=== PATIENT | male | born 1980 | race African-American/Black ===

== ENCOUNTER 2019-01-11 13:33 | Inpatient (IN) | payer OTHER ==
[2019-01-11 14:38] VITALS: BMI 26.1
--- NOTE | 2019-01-11 16:42 | HP ---
CIWA Score Nausea/Vomitin-No Nausea/No Vomiting Muscle Tremors: None Anxiety: 3 Agitation: 1-Slight > Activity Paroxysmal Sweats: No Perspiration Orientation: 0-Oriented Tacttile Disturbances: 0-None Auditory Disturbances: 0-None Visual Disturbances: 0-None Headache: 3-Moderate CIWA-Ar Total Score: 7 - Admission Criteria OASAS Guidelines: Admission for Medically Managed Detox: Requires at least one of the followin. CIWA greater than 12 2. Seizures within the past 24 hours 3. Delirium tremens within the past 24 hours 4. Hallucinations within the past 24 hours 5. Acute intervention needed for co occurring medical disorder 6. Acute intervention needed for co occurring psychiatric disorder 7. Severe withdrawal that cannot be handled at a lower level of care (continued vomiting, continued diarrhea, abnormal vital signs) requiring intravenous medication and/or fluids 8. Admission ROS S - HPI Allergies/Adverse Reactions: Allergies Allergy/AdvReac Type Severity Reaction Status Date / Time No Known Allergies Allergy Verified 01/11/19 14:25 History of Present Illness: pt here requesting detox from benzo use , reports MMTP in [facility] x 2 years , current daily dose 120 mg Occasional heroin use with MMTP . cocaine : 1 gr/day IVDU in [place] , needles from pharmacy , denies sharing , + re-using, denies abscess benzo : xanax use 2 /day x 2 years tobacco : " probably in a few days " PMHX : denies PSHx : denies PSych : denies meds : denies Search Terms: ayaz bragg, 1980 Search Date: 01/11/2019 04:51:48 PM The Drug Utilization Report below displays all of the controlled substance prescriptions, if any, that your patient has filled in the last twelve months. The information displayed on this report is compiled from pharmacy submissions to the Department, and accurately reflects the information as submitted by the pharmacies. This report was requested by: Maribell Washington | Reference #: [id number] There are no results for the search terms that you entered. Exam Limitations: Clinical Condition, Intoxication - Ebola screening Have you traveled outside of the country in the last 21 days: No Have you had contact with anyone from an Ebola affected area: No - Review of Systems Constitutional: See HPI EENT: reports: Other (denies vision loss , denies dysphagia) Respiratory: reports: No Symptoms reported Cardiac: reports: No Symptoms Reported GI: reports: Constipated : reports: No Symptoms Reported Musculoskeletal: reports: No Symptoms Reported Integumentary: reports: See HPI Neuro: reports: Headache Endocrine: reports: No Symptoms Reported Hematology: reports: No Symptoms Reported Psychiatric: reports: Orientated x3, Depressed Patient History - Smoking Cessation Smoking history: Current some day smoker Initiated information on smoking cessation: No - Substances abused Alcohol Substance route: Oral Frequency: Daily Amount used: 2 six beers ( 12 oz cans) Age of first use: 13 Date of last use: 01/10/19 Heroin Substance route: Injection Frequency: 3-6 times per week Amount used: 2 bags Age of first use: 15 Date of last use: 01/10/19 Alprazolam (Xanax) Substance route: Oral Frequency: Daily Amount used: 6mg Age of first use: 28 Date of last use: 01/10/19 Benzodiazepine (Klonopin) Substance route: Oral Frequency: 3-6 times per week Amount used: 4mg Age of first use: 35 Date of last use: 01/06/19 Cocaine Substance route: Smoking Frequency: Daily Amount used: 1 gram Age of first use: 14 Date of last use: 01/10/19 Family Disease History - Family Disease History Family History: Unable to Obtain Family Disease History: CA: Father (d. Lung CA ), Mother (d. lung CA) Admission Physical Exam [facility] - Vital Signs Vital Signs: Vital Signs - 24 hr 01/11/19 14:28 Temperature 98 F Pulse Rate 61 Respiratory 18 Rate Blood Pressure 136/80 - Physical General Appearance: Yes: Disheveled, Mild Distress, Anxious HEENTM: Yes: EOMI, Hearing grossly Normal, Normocephalic, Normal Voice Respiratory: Yes: Chest Non-Tender, Lungs Clear, Normal Breath Sounds Neck: Yes: No masses,lesions,Nodules, Trachea in good position Cardiology: Yes: Regular Rhythm, Regular Rate, S1, S2 Abdominal: Yes: Normal Bowel Sounds, Non Tender, Soft Back: Yes: Normal Inspection Musculoskeletal: Yes: full range of Motion Extremities: Yes: Normal Range of Motion, Non-Tender Neurological: Yes: Fully Oriented, Alert, Motor Strength 5/5 Integumentary: Yes: Warm, Track Woodard (dorsum of hands) - Diagnostic (1) Sedative, hypnotic or anxiolytic abuse Current Visit: Yes Status: Acute (2) Cocaine dependence Current Visit: Yes Status: Chronic Qualifiers: Substance use status: uncomplicated Qualified Code(s): F14.20 - Cocaine dependence, uncomplicated (3) Opioid dependence on agonist therapy Current Visit: Yes Status: Chronic Breathalyzer - Breathalyzer Breathalyzer: 0 Urine Drug Screen - Test Device Lot number: [id number] Expiration date: 08/31/20 - Control Is test valid?: Yes - Results Drug screen NEGATIVE: No Urine drug screen results: KAITLIN-Cocaine, MOP-Opiates, MTD-Methadone, BZO- Benzodiazepines Inpatient Rehab Admission - Rehab Decision to Admit Inpatient rehab admission?: No
[2019-01-11] MEDS ORDERED: MENTHOL/PHENOL 1 EACH UD MM PRN (16:59)
[2019-01-11] MEDS ORDERED: diazePAM 5 MG TABLET PO PRN (16:59)
[2019-01-11] MEDS ORDERED: MELATONIN 5 MG TABLETS PO PRN (16:59)
[2019-01-11] MEDS ORDERED: MAG HYDROX/AL HYDROX/SIMETH 30 ML UNIT-DOSE CUP PO PRN (16:59)
[2019-01-11] MEDS ORDERED: BISMUTH SUBSALICYLATE 524 MG/30 ML UD PO PRN (16:59)
[2019-01-11] MEDS ORDERED: IBUPROFEN 400 MG TABLET (FP) PO PRN (16:59)
[2019-01-11] MEDS ORDERED: MAGNESIUM HYDROX 2400MG/30ML ORAL SUSPENSION 30 ML CUP PO PRN (16:59)
[2019-01-11] MEDS ORDERED: MAGNESIUM CITRATE 300 ML BOTTLE PO PRN (16:59)
[2019-01-11] MEDS ORDERED: ACETAMINOPHEN 325 MG TABLET (FP) PO PRN ×2 (16:59)
[2019-01-11] MEDS ORDERED: ALBUTEROL SO4 0.083% IH SOL 2.5 MG/3 ML VIAL.NEB. NEB PRN (17:00)
[2019-01-11] MEDS: diazePAM 5 MG TABLET PO SCH (22:58)
[2019-01-11] MEDS: THIAMINE HCL 100 MG TABLET (FP) PO SCH (22:58)
[2019-01-12] MEDS: diazePAM 5 MG TABLET PO SCH ×3 (05:53→23:16)
--- NOTE | 2019-01-12 08:55 | PN ---
[facility] CIWA - CIWA Score Nausea/Vomitin Muscle Tremors: 2 Anxiety: 2 Agitation: 2 Paroxysmal Sweats: 1-Minimal Palms Moist Orientation: 0-Oriented Tacttile Disturbances: 2-Mild Itch/Numbness/Burn Auditory Disturbances: 0-None Visual Disturbances: 0-None Headache: 1-Very Mild CIWA-Ar Total Score: 12 [facility] Progress Note (SOAP) Subjective: Interrupted sleep, anxiety, muscle aches Objective: 01/12/19 08:54 Vital Signs 01/12/19 01/12/19 03:00 03:30 Temperature 97.9 F Pulse Rate 64 Respiratory 18 18 Rate Blood Pressure 129/65 Labs pending Assessment: 01/12/19 08:54 Withdrawal sx MMTP Plan: Continue detox Methadone 120mg daily ordered
[2019-01-12] MEDS: PRENATAL VITAMINS W/ FOLIC ACID TABLET (FP) PO SCH (10:33)
[2019-01-12] MEDS: METHADONE HCL 40 MG DISPERSABLE TABLET PO SCH (10:33)
[2019-01-12 11:00] LABS: ALBUMIN 3.1 g/dl (3.4-5.0); ALK PHOS 93 U/L (45-117); ANION GAP 4 MMOL/L (8-16); BILIRUBIN,TOTAL 0.3 mg/dL (0.2-1); BLOOD UREA NITROGEN 15 mg/dL (7-18); CALCIUM 8.5 mg/dL (8.5-10.1); CHLORIDE 107 mmol/L (98-107); CO2 28 mmol/L (21-32); GLUCOSE,RANDOM 135 mg/dL (74-106); POTASSIUM 3.6 mmol/L (3.5-5.1); SGOT/AST 31 U/L (15-37); SGPT/ALT 33 U/L (13-61); SODIUM 139 mmol/L (136-145); TOT PROT 6.4 g/dl (6.4-8.2)
[2019-01-12 11:06] LABS: HEMOGLOBIN 11.8 GM/dL (11.7-16.9); MCHC 31.8 g/dl (32.0-35.9); MEAN CELL VOLUME 81.7 fl (80-96); MEAN PLT VOLUME 8.6 fl (7.5-11.1); PLATELET COUNT 217 K/MM3 (134-434); RBC 4.53 M/mm3 (4.00-5.60); RDW 14.7 % (11.9-15.9); WHITE BLOOD COUNT 4.9 K/mm3 (4.0-10.0)
[2019-01-12] MEDS: THIAMINE HCL 100 MG TABLET (FP) PO SCH (23:16)
[2019-01-13] MEDS ORDERED: METHADONE HCL 10 MG TABLET PO ONE (09:51)
[2019-01-13] MEDS ORDERED: METHADONE HCL 40 MG DISPERSABLE TABLET PO ONE (10:15)
[2019-01-13] MEDS: PRENATAL VITAMINS W/ FOLIC ACID TABLET (FP) PO SCH (10:31)
[2019-01-13] MEDS: METHADONE HCL 40 MG DISPERSABLE TABLET PO SCH (10:33)
[2019-01-13] MEDS: diazePAM 5 MG TABLET PO SCH ×2 (10:33→22:18)
--- NOTE | 2019-01-13 10:39 | PN ---
S CIWA - CIWA Score Nausea/Vomitin-No Nausea/No Vomiting Muscle Tremors: 2 Anxiety: 2 Agitation: 0-Normal Activity Paroxysmal Sweats: 2 Orientation: 0-Oriented Tacttile Disturbances: 0-None Auditory Disturbances: 0-None Visual Disturbances: 0-None Headache: 0-None Present CIWA-Ar Total Score: 6 [facility] Progress Note (SOAP) Subjective: PATIENT C/O ANXIETY, INTERRUPTED SLEEP, MILD NIGHT SWEATS AND CHILLS. Objective: 01/13/19 10:37 Vital Signs Temperature 98.1 F 01/13/19 09:16 Pulse Rate 62 01/13/19 09:16 Respiratory Rate 16 01/13/19 09:16 Blood Pressure 109/52 L 01/13/19 09:16 O2 Sat by Pulse Oximetry (%) Laboratory Tests 01/12/19 01/12/19 01/12/19 07:30 07:30 07:30 WBC 4.9 RBC 4.53 Hgb 11.8 Hct 37.0 MCV 81.7 MCH 26.0 MCHC 31.8 L RDW 14.7 Plt Count 217 MPV 8.6 Sodium 139 Potassium 3.6 Chloride 107 Carbon Dioxide 28 Anion Gap 4 L BUN 15 Creatinine 1.0 Creat Clearance w eGFR 82.76 Random Glucose 135 H Calcium 8.5 Total Bilirubin 0.3 AST 31 ALT 33 Alkaline Phosphatase 93 Total Protein 6.4 Albumin 3.1 L RPR Titer Nonreactive PE: ALERT AND ORIENTED X 3 SKIN WARM AND DRY EXT MILD TREMORS MILDLY ANXIOUS, SLEEPY Assessment: 01/13/19 10:38 WITHDRAWAL SX Plan: CONTINUE DETOX ENCOURAGED ORAL FLUIDS CONTINUE TO MONITOR CLINICALLY
[2019-01-13] MEDS: THIAMINE HCL 100 MG TABLET (FP) PO SCH (22:19)
[2019-01-14] MEDS ORDERED: diazePAM 5 MG TABLET PO SCH (06:00)
[2019-01-14 09:40] VITALS: BP 133/61; PULSE 86; TEMP 98.1
[2019-01-14] MEDS: METHADONE HCL 40 MG DISPERSABLE TABLET PO SCH (09:59)
[2019-01-14] MEDS: PRENATAL VITAMINS W/ FOLIC ACID TABLET (FP) PO SCH (10:00)
--- NOTE | 2019-01-14 14:16 | DS ---
[facility] Detox Discharge Summary Admission Date: 01/11/19 Discharge Date: 01/14/19 - History Present History: Cocaine Dependence, Opioid Dependence, Sedative Dependence, MMTP Additional Comments: PATIENT GOING TO [facility] ([place], [place]) FOR AFTERCARE. PATIENT WAS DISCHARGED FROM DETOX UNIT IN STABLE MEDICAL CONDITION. Pertinent Past History: M.M.T.P. - Physical Exam Results Vital Signs: Vital Signs Temperature 98.1 F 01/14/19 09:40 Pulse Rate 86 01/14/19 09:40 Respiratory Rate 16 01/14/19 09:40 Blood Pressure 133/61 01/14/19 09:40 O2 Sat by Pulse Oximetry (%) Pertinent Admission Physical Exam Findings: WITHDRAWAL SYMPTOMS. Laboratory Tests 01/12/19 01/12/19 01/12/19 07:30 07:30 07:30 WBC 4.9 RBC 4.53 Hgb 11.8 Hct 37.0 MCV 81.7 MCH 26.0 MCHC 31.8 L RDW 14.7 Plt Count 217 MPV 8.6 Sodium 139 Potassium 3.6 Chloride 107 Carbon Dioxide 28 Anion Gap 4 L BUN 15 Creatinine 1.0 Creat Clearance w eGFR 82.76 Random Glucose 135 H Calcium 8.5 Total Bilirubin 0.3 AST 31 ALT 33 Alkaline Phosphatase 93 Total Protein 6.4 Albumin 3.1 L RPR Titer Nonreactive LABS NOTED. - Treatment Hospital Course: Detox Protocol Followed, Detoxed Safely, Responded well, Discharged Condition Good, Rehab Referral Accepted Patient has Accepted a Rehab Referral to: [facility] ([place], [place]). - Medication Discharge Medications: Ambulatory Orders NK [No Known Home Medication] 01/11/19 - Diagnosis (1) Sedative, hypnotic or anxiolytic abuse Status: Acute (2) Cocaine dependence Status: Chronic Qualifiers: Substance use status: uncomplicated Qualified Code(s): F14.20 - Cocaine dependence, uncomplicated (3) Opioid dependence on agonist therapy Status: Chronic - AMA Did Patient Leave Against Medical Advice: No
== END 2019-01-14 10:27 | disposition home or self-care (01) | DRG 773 ==
LOC: YASAS 13:33 → Y6N 17:26
PROVIDERS: ADMIT Surgery; ATTEND Surgery
PROC: HZ2ZZZZ Detoxification Services for Substance Abuse Treatment (ICD-10-PCS; principal; 2019-01-11)
DX: F13.230 Sedative, hypnotic or anxiolytic dependence with withdrawal, uncomplicated (principal); F11.20 Opioid dependence, uncomplicated; F14.20 Cocaine dependence, uncomplicated
CPT/HCPCS: 36415; 80053; 85027; 86593